=== PATIENT | female | born 1940 ===

== ENCOUNTER 2017-06-28 12:54 | Observation (INO) | payer OTHER, MEDICAID ==
[~2017-06-28] VITALS: Ht 170.2 cm; Wt 77.1 kg
[2017-06-28 13:39] LABS: Basophils # (auto) 0 uL; Basophils % (auto) 0.6 % (0.0-2.0); Eosinophils # (auto) 0.2 uL; Eosinophils % (auto) 2.8 % (0.0-7.0); Hematocrit 33.6 % (36.0-46.0); Hemoglobin 10.9 g/dL (12.2-16.2); Lymphocytes # (auto) 3.1 uL; Lymphocytes % (auto) 38.7 % (10.0-50.0); Mean Corpuscular Hemoglobin 28.5 pg (28.0-32.0); Mean Corpuscular Hgb Conc. 32.6 g/dL (32.0-36.0); Mean Corpuscular Volume 87.6 fL (80.0-100.0); Mean Platelet Volume 10.2 fL (6.9-10.8); Monocytes # (auto) 0.5 uL; Monocytes % (auto) 6.4 % (0.0-12.0); Neutrophils # (auto) 4.1 uL; Neutrophils % (auto) 51.5 % (37.0-80.0); Nucleated Red Blood Cells % 0.2 %; Platelet Count (auto) 145 10^3/uL (140-450); Red Cell Distribution Width 14.1 % (11.8-14.3)
[2017-06-28 13:52] LABS: INR 1.1 (0.9-1.15); Partial Thromboplastin Time 22.4 sec (22.64-33.71)
[2017-06-28 13:54] LABS: Magnesium 2.4 mg/dL (1.6-2.6)
[2017-06-28 15:07] LABS: Albumin 3.6 g/dL (3.4-5.0); BUN/Creatinine Ratio 10.5; Calcium 8.5 mg/dL (8.5-10.1); Potassium 3.8 mmol/L (3.5-5.1)
[2017-06-28 15:09] LABS: Bilirubin, Total 0.4 mg/dL (0.2-1.0); Total Protein 6.6 g/dL (6.4-8.2)
[2017-06-28 17:18] VITALS: BP 131/97
== END 2017-06-28 17:48 | disposition home or self-care (01) | DRG 312 ==
LOC: EDBD 12:54 → ER 12:59 → OVERFLOW 13:12 → ER 17:48
PROVIDERS: ADMIT Family Medicine; ATTEND Family Medicine
DX: R55 Syncope and collapse (principal); D64.9 Anemia, unspecified; I10 Essential (primary) hypertension; S43.401A Unspecified sprain of right shoulder joint, initial encounter; J45.909 Unspecified asthma, uncomplicated; Z82.49 Family history of ischemic heart disease and other diseases of the circulatory system; W19.XXXA Unspecified fall, initial encounter; Y93.89 Activity, other specified; Y92.89 Other specified places as the place of occurrence of the external cause; Y99.8 Other external cause status
CPT/HCPCS: 36415; 70450; 70486; 71010; 73030; 73060; 80053; 83735; 84484; 85025; 85610; 85730; 93005; 99285; G0378